=== PATIENT | male | born 1940 | race Caucasian/White ===

== ENCOUNTER → 2016-09-26 | Outpatient (CLI) | payer OTHER ==
[~2016-09-26] MED LIST: ACETAMINOPHEN PO; ASPIRIN PO; ASPIRIN81 M2 PO; AUGMENTIN PO; CERTAGEN PO; CIPRO; CLOPIDOGREL BIS75 MG PO; DYMISTA NASAL S23 GM; METAMUCIL0.52 G PO; METOPROLOL SUCC50 MG PO; MOBIC15 MG PO; MULTI-VITAMIN1 TAB; NATURAL VITA400 UNI2 PO; OMEPRAZOLE20 M2 PO; OXAPROZIN600 MG PO; POTASSIUM99 M1 PO; PREVACID; PREVACID15 MG PO; PRINIVIL20 M1 PO; PROTONIX PO; PULMICORT180 MCG/A1; REGLAN; SIMCOR PO; VIT E; ZOCOR; ZOCOR20 MG PO; [UNRECOGNIZED DRUG - REMARK]
--- NOTE | ~2016-09-26 | ST ---
Unit #: [id number] #: [id number] Patient: MAYRA CHAVIRA [id number] [address] [place], [place] [address] [id number] O MR#: [id number] NAME: MAYRA CHAVIRA : 1940 SEX: M STUDY DATE/TIME: 09/26/2016 UNIT: [facility] ROOM: STUDY DESCRIPTION: Stress test Attending Physician: Hussein Henriquez M.D. Referring Physician: Hussein Henriquez M.D. Primary Care Physician: Xavi Morin M.D. CARDIOLOGY REPORT DATE OF EXAM 09/26/2016 EXAM Walking Lexiscan Cardiolite stress test. FINDINGS Baseline EKG shows a normal sinus rhythm with a rate of 63 beats per minute with left axis deviation and poor R wave progression. There is nonspecific ST wave abnormality. Lexiscan was injected immediately followed by Cardiolite while the patient ambulated on the treadmill for four minutes. He had no complaints of chest pain, palpitations or dizziness. EKG during exercise showed no ST-T wave abnormality. It was noted for an occasional premature ventricular complex. Maximum blood pressure response 158/78 mmHg. At the end of recovery, blood pressure 136/85 mmHg. Please correlate these results with nuclear images. Dictated by... Kings Abarca A.P.R.N. for James Galindo/fred TD: 09/28/2016 12:44 JOB #: [id number] CARDIOLOGY REPORT Page 1 of 1 X Kings Abarca APRN CARDIOLOGY REPORT
--- NOTE | ~2016-09-26 | TH ---
Unit #: [id number] #: [id number] Patient: MAYRA CHAVIRA [id number] [address] [address] [id number] O MR#: [id number] NAME: MAYRA CHAVIRA : 1940 SEX: M STUDY DATE/TIME: 09/26/2016 UNIT: [facility] ROOM: STUDY DESCRIPTION: Attending Physician: Hussein Henriquez M.D. Referring Physician: Hussein Henriquez M.D. Primary Care Physician: Xavi Morin M.D. CARDIOLOGY REPORT EXAM Lexiscan Cardiolite stress test, nuclear portion. PROCEDURE Using technetium 99m labeled Cardiolite, rest and stress SPECT images were obtained. Multiple SPECT images were obtained in various views including horizontal and vertical long axis and short axis views of the left ventricle. Images were obtained by gated SPECT method. The patient was administered 11.56 mCi of Cardiolite at rest. Patient was administered 33.8 mCi of Cardiolite after Lexiscan infusion was completed. On the stress images, there is a small area of mild decreased isotope activity in the lateral wall. The rest images show normal perfusion. Comparing rest and stress images, there is a small area of stress-induced ischemia involving the lateral wall of the left ventricle. The left ventricular ejection fraction is calculated to be 65%. There is no focal wall motion abnormality seen. CONCLUSION 1. Suspicion for a small area of stress-induced ischemia involving the lateral wall of the left ventricle. 2. The left ventricular ejection fraction is calculated to be 65%. 3. There is no focal wall motion abnormality seen. 4. Abnormal Lexiscan Cardiolite stress test suspicious for coronary artery disease. Clinical correlation is requested. Dictated by... James Galindo TD: 09/26/2016 11:23 JOB #: [id number] Unit #: [id number] #: [id number] Patient: MAYRA CHAVIRA CARDIOLOGY REPORT Page [address] of [address] MD <ELECTRONICALLY SIGNED> 11/08/16 1524 CARDIOLOGY REPORT
== END | disposition home or self-care (01) ==
LOC: CNUC 07:57
DX: I25.10 Atherosclerotic heart disease of native coronary artery without angina pectoris (principal); I10 Essential (primary) hypertension; R53.83 Other fatigue; R94.39 Abnormal result of other cardiovascular function study
CPT/HCPCS: 78452; 93017; A9500; J2785